=== PATIENT | female | born 1995 | race Native Hawaiian/Other Pacific Islander ===

== ENCOUNTER 2021-12-11 10:07 | Emergency (ER) | payer BC ==
[~2021-12-11] VITALS: Ht 175.3 cm; Wt 83.5 kg
[2021-12-11 11:17] LABS: PLATELET COUNT 155 K/uL (152-353)
[2021-12-11 11:23] LABS: POTASSIUM 3.8 mmol/L (3.6-5.2)
[2021-12-11 12:40] VITALS: BP 114/56; TEMP 98.7
== END 2021-12-11 12:45 | disposition home or self-care (01) ==
LOC: ED 10:07
PROVIDERS: Family Medicine
DX: R51.9 Headache, unspecified (principal); Z86.16 Personal history of COVID-19; J02.9 Acute pharyngitis, unspecified; Z98.890 Other specified postprocedural states
CPT/HCPCS: 80053; 83605; 85027; 87635; 87651; 96372; 99283; J1200; J1885; U0003